=== PATIENT | female | born 1965 | race Caucasian/White ===

== ENCOUNTER → 2016-09-11 | Outpatient (CLI) | payer OTHER ==
[~2016-09-11] MED LIST: ACTOS PO; CAPOZIDE PO; CHANTIX; CIPRO250 MG PO; DEPAKOTE ER PO; DESYREL50 MG PO; DOXYCYCLINE HY100 M1 PO; FLEXERIL10 MG PO; GABAPENTIN600 MG PO; GLIPIZIDE10 MG PO; GLUCOTROL XL10 MG PO; HALDOL PO; HUMALOG100 U/M1; HUMALOG100 U/ML SUBQ; HYDROCHLOROTHIA25 MG PO; KLONOPIN0.5 M3 PO; KLONOPIN1 MG PO; LANTUS100 U/ML SUBQ; LEVOTHYROXINE75 MC1 PO; LIPITOR40 MG PO; LORTAB 5/500 TA1 TA1 PO; LORTAB 7.51 TAB 7.5/ PO; MEDROL4 MG/DOSE- PO; MOBIC15 MG PO; MORPHINE SULFAT30 M4 PO; NEXIUM20 MG PO; NORCO1 TAB 10/3; OMEPRAZOLE40 M1 PO; OXYGEN; PIOGLITAZONE HC45 MG PO; PRILOSEC PO; PROZAC PO; SEROQUEL PO; SEROQUEL300 MG PO; SEROQUEL400 MG PO; SKELAXIN400 MG PO; ULTRAM PO; VICTOZA0.6 MG/0.1 SUBQ; VISTARIL PO; VITAMIN D250000 UNIT PO; VOLTAREN75 MG PO; WELLBUTRIN PO
--- NOTE | ~2016-09-11 | CR173 ---
[facility] A Service of [facility] & [facility] RADIOLOGY TEXT RESULTS PATIENT: KWAN DANIEL LOCATION: [facility] : [birth year] UNIT #: [id number] AGE: [address]: Heather Jarvis MD SEX: F ORDER DR: [id number] [facility] [address] [place], [place] [address] [id number] O MR#: [id number] Acc #: [id number] NAME: KWAN DANIEL. : 1965 SEX: F STUDY DATE/TIME: 09/11/2016 12:53 UNIT: [facility] ROOM: STUDY DESCRIPTION: CR Knee 3 Views Rt Attending Physician: Heather Jarvis M.D. Referring Physician: Heather Jarvis M.D. Ordering Physician: Heather Jarvis M.D. Primary Care Physician: Iam Garcia M.D. MEDICAL IMAGING REPORT This report is preliminary unless electronic signature is present EXAM Right knee HISTORY Knee pain and swelling for the past 2 years. Osteoarthritis. COMPARISON 03/18/2015 TECHNIQUE 3 views of the knee were obtained. FINDINGS 3 views of the knee show a marked medial compartment narrowing on the standing AP view. There is complete medial compartment collapse with loss of cartilage and cortical sclerosis. The lateral compartment shows mild joint space narrowing. There is minimal chondrocalcinosis of the lateral meniscus that is unchanged from previous exam. The patellofemoral joint shows a mild lateral patellar tilt with osteophyte formation along the medial and lateral margins of the patella as well as at the upper and lower patellar pole and the patellar undersurface shows cortical irregularity. 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 There is a small joint effusion. No osteochondral fragments are seen. IMPRESSION Severe medial compartment degenerative change with a complete cartilage loss and a [id number] configuration on the standing view with varus angulation. In the lateral compartment there is moderate degenerative change with joint line osteophyte formation and chondrocalcinosis. Lateral joint line osteophytes are larger than on the previous exam but the chondrocalcinosis is unchanged. Patellofemoral joint arthrosis is also seen accompanied by a mild lateral patellar tilt. Patellofemoral joint [facility]. [facility] A Service of [facility] & [facility] RADIOLOGY TEXT RESULTS PATIENT: KWAN DANIEL LOCATION: [facility] : [birth year] UNIT #: [id number] AGE: [address]: Heather Jarvis MD SEX: F ORDER DR: degenerative changes show progression since the previous exam. Dictated by... Pierre Willis M.D. THIS IS AN ELECTRONICALLY VERIFIED REPORT Pierre Willis M.D. at 09/11/2016 6:21 PM RICHARD/jules TD: 09/11/2016 14:39 JOB #: [id number] MEDICAL IMAGING REPORT Page 1 of 1 COPY
== END | disposition home or self-care (01) ==
LOC: CRAD 12:36
DX: M17.11 Unilateral primary osteoarthritis, right knee (principal); M11.261 Other chondrocalcinosis, right knee; M25.761 Osteophyte, right knee
CPT/HCPCS: 73562

== ENCOUNTER → 2016-12-02 | Outpatient (CLI) | payer OTHER ==
--- NOTE | ~2016-12-02 | MY29 ---
[facility] A Service of [facility] & [facility] RADIOLOGY TEXT RESULTS PATIENT: KWAN DANIEL LOCATION: [facility] : 69 UNIT #: [id number] AGE: [address]: Iam Garcia MD SEX: F ORDER DR: [id number] [facility] [address] [place], [place] [address] [id number] O MR#: [id number] Acc #: [id number] NAME: KWAN DANIEL : 1965 SEX: F STUDY DATE/TIME: 12/02/2016 13:30 UNIT: [facility] ROOM: STUDY DESCRIPTION: MY ROMINA SCREENING W/ CAD BILAT Attending Physician: Iam Garcia M.D. Referring Physician: Iam Garcia M.D. Ordering Physician: Iam Garcia M.D. Primary Care Physician: Iam Garcia M.D. MEDICAL IMAGING REPORT This report is preliminary unless electronic signature is present EXAM Digital screening mammogram with CAD DATE 12/02/2016 HISTORY No personal or family history of breast cancer or current complaints. History of benign right breast core needle biopsy approximately 4 years ago per patient. COMPARISON Bilateral digital diagnostic mammogram performed at [facility] 11/14/2014. Right breast of the stereotactic needle biopsy 08/24/2008. Bilateral diagnostic mammogram 07/26/2008. Bilateral screening mammogram 07/01/2008. FINDINGS CC and MLO views were obtained of each breast utilizing digital technique and reviewed with an FDA-approved CAD device. Scattered fibroglandular densities are present bilaterally. Biopsy marker is seen within the anterior left breast medial hemisphere, unchanged from prior. A few scattered fibronodular densities are seen within each breast, a few of which in the right breasts appear less conspicuous or resolved, while others in both breasts appear stable. There are scattered benign calcifications bilaterally, but no new or focal suspicious clustered microcalcification is seen. No architectural distortion features are identified. Partially calcified involuting fibroadenoma is seen within the central third of left breast. IMPRESSION BIRADS category 2. Benign findings. Routine bilateral screening STS. [facility] A Service of [facility] & [facility] RADIOLOGY TEXT RESULTS PATIENT: KWAN DANIEL LOCATION: [facility] : 69 UNIT #: [id number] AGE: [address]: Iam Garcia MD SEX: F ORDER DR: mammogram is recommended in 1 year. Patients over the age of 40 are entered into a reminder system with target due date for the next mammogram. A result letter will also be sent to the patient. BIRADS: 2, benign findings. Dictated by... Mame Molina M.D. THIS IS AN ELECTRONICALLY VERIFIED REPORT Mame Molina M.D. at 12/05/2016 7:33 AM FRANCIS/jules TD: 12/03/2016 18:09 JOB #: [id number] MEDICAL IMAGING REPORT Page 1 of 1 COPY
== END | disposition home or self-care (01) ==
LOC: CWCC 13:00
DX: Z12.31 Encounter for screening mammogram for malignant neoplasm of breast (principal); Z98.890 Other specified postprocedural states
CPT/HCPCS: G0202